=== PATIENT | male | born 1995 | race Caucasian/White ===

== ENCOUNTER 2020-03-12 12:51 | Emergency (ER) | payer BC ==
[~2020-03-12] VITALS: Ht 182.8 cm; Wt 67.6 kg
[~2020-03-12 12:51] MED LIST: MOTRIN400 MG PO
== END 2020-03-12 14:49 | disposition home or self-care (01) ==
LOC: ED 12:51
DX: R13.10 Dysphagia, unspecified (principal); R07.9 Chest pain, unspecified